=== PATIENT | female | born 1965 | race Caucasian/White ===

== ENCOUNTER 2018-11-06 21:59 | Emergency (ER) | payer OTHER ==
[~2018-11-06] VITALS: Ht 76.2 cm; Wt 59.0 kg
[2018-11-06 22:00] VITALS: BP 110/84
--- NOTE | 2018-11-06 22:00 | NUR ---
ED Nurse Note: Vomiting after marijuana and tequilla injestion tonight. pt and pt friend stated they just wanted to try marijuana to reminice about their highschool days. the pt states she has no suicidal ideation, she just wanted to use marijuana "to have" fun. the pt did not have any syncopal episodes, no loss of conciounsness, she was just having anxiety from the marijuana she took. vital signs are within normal limits in [facility].
[2018-11-06] MEDS ORDERED: LEXAPRO10 MG ORAL (22:08)
[2018-11-06] MEDS ORDERED: LORazepam Inj 2mg/ml 1ml IV ONE (22:30)
--- NOTE | 2018-11-06 22:30 | Emergency Room Report ---
History of Present Illness General Chief Complaint: Overdose Source: Patient, Family Member Present Illness HPI This is a 53-year-old female with a history of anxiety. She presents with chief complaint of altered mental status with feeling nauseous and numbness to her body. Onset was acute after smoking half a joint and having some alcohol. She had some vomiting when she got here. No fever chills but no diarrhea. She felt jerking shaky throughout. She thought this may be an allergic reaction. Allergies: Coded Allergies: DE LEON (Verified Allergy, Unknown, 11/06/18) Patient History Past Medical History: see triage record, old chart reviewed Past Surgical History: none Pertinent Family History: none Social History: Denies: smoking Last Menstrual Period: "Ten years ago" Now: No Immunizations: other Reviewed Nursing Documentation: PMH: Agreed; PSxH: Agreed Nursing Documentation-PMH History Of Psychiatric Problem: Yes - Depression Review of Systems Eye: Denies: eye pain, blurred vision ENT: Denies: ear pain, nose congestion, throat swelling Respiratory: Reports: shortness of breath; Denies: cough Cardiovascular: Reports: palpitations; Denies: chest pain Gastrointestinal: Denies: abdominal pain, diarrhea, nausea, vomiting Musculoskeletal: Denies: back pain, joint pain Skin: Denies: rash Neurological: Reports: paresthesia; Denies: headache, numbness Endocrine: Denies: increased thirst, increased urine Hematologic/Lymphatic: Denies: easy bruising All Other Systems: negative except mentioned in HPI Physical Exam Vital Signs Date Time Temp Pulse Resp B/P (MAP) Pulse Ox O2 Delivery O2 Flow Rate FiO2 11/06/18 22:03 97.5 86 16 120/80 100 Room Air vitals normal Sp02 EP Interpretation: reviewed, normal General Appearance: well appearing, no apparent distress, alert Head: normocephalic, atraumatic Eyes: bilateral eye PERRL, bilateral eye EOMI ENT: hearing grossly normal, normal pharynx Neck: full range of motion, supple, no meningismus Respiratory: chest non-tender, lungs clear, normal breath sounds Cardiovascular #1: regular rate, rhythm, no murmur Gastrointestinal: normal bowel sounds, non tender, no mass, no organomegaly, no bruit, non-distended Musculoskeletal: back normal, gait/station normal, normal range of motion Psychiatric: anxious Skin: warm/dry Medical Decision Making Diagnostic Impression: Primary Impression: Cannabis-induced anxiety disorder ER Course Patient presents with anxiety and nausea vomiting secondary to count and this use. She is feeling better now. This is after Ativan. No evidence of toxic ingestion. No evidence of infection or allergy. We'll discharge home. Last Vital Signs Date Time Temp Pulse Resp B/P (MAP) Pulse Ox O2 Delivery O2 Flow Rate FiO2 11/06/18 22:03 97.5 86 16 120/80 100 Room Air Status: improved Disposition: HOME, SELF-CARE Condition: Stable Additional Instructions: Follow-up with your doctor in 7 days. Return if symptom worsen. Zackary Cowan MD Nov 06, 2018 22:29
[2018-11-06 23:54] VITALS: BP 105/81
[2018-11-06 23:56] VITALS: BP 105/81
--- NOTE | 2018-11-06 23:58 | NUR ---
ED Nurse Note: PT is DC per ERMD orders. pt is alert and oriented times 4. no skin issues noted in ER. pt is able to ambulte with steady gait. pt condition, vital signs, and status has been reported to ERMD and discharge planner prior to DC. PT ID band removed, as well as IV. pt left with all DC notes. pt was able to teach back DC notes. pt is instructed to follow up with primary MD as soon as possible. pt is instructed to report back if any questions or change of stable condition.
== END 2018-11-06 23:50 | disposition home or self-care (01) ==
LOC: EDBD 21:59 → EMR 22:30
DX: F12.980 Cannabis use, unspecified with anxiety disorder (principal); F32.9 Major depressive disorder, single episode, unspecified; R11.2 Nausea with vomiting, unspecified
CPT/HCPCS: 96361; 96374; 99284